=== PATIENT | female | born 1940 | race Caucasian/White ===

== ENCOUNTER 2018-09-30 19:17 | Emergency (ER) | payer MEDICARE ==
[2018-09-30 20:00] LABS: APPEARANCE,URINE Clear (CLEAR); BILIRUBIN,URINE Negative (NEGATIVE); COLOR,URINE Yellow (YELLOW); GLUCOSE, URINE (UA) Negative (NEGATIVE); KETONES,URINE Negative (NEGATIVE); LEUKOCYTE ESTERASE ,URINE Moderate (NEGATIVE); NITRATE,URINE Negative (NEGATIVE); OCCULT BLOOD,URINE Negative (NEGATIVE); PROTEIN,URINE Negative (NEGATIVE)
[2018-09-30 20:01] LABS: BASOPHILS % (AUTO) 0.8 % (0.0-5.0); EOSINOPHILS % (AUTO) 2.5 % (0.0-8.0); HEMATOCRIT 42.4 % (36-48); LYMPHOCYTES % (AUTO) 16.2 % (21.0-51.0); MEAN CORPUSCULAR HEMOGLOBIN 30.8 pg (27.0-33.0); MEAN CORPUSCULAR HGB CONC 34.1 g/dL (32.0-36.0); MEAN CORPUSCULAR VOLUME 90.2 fL (79-99); NEUTROPHILS % (AUTO) 69.5 % (40.0-77.0); PLATELET COUNT (AUTO) 234 K/uL (130-400); RED BLOOD CELL COUNT(AUTO) 4.71 MIL/uL (4.00-5.50); RED CELL DISTRIBUTION WIDTH 13.6 % (11.0-15.5); WHITE BLOOD COUNT (AUTO) 8.8 K/uL (4.8-10.8)
[2018-09-30 20:07] LABS: AMPHET/METH SCREEN,URINE NEGATIVE (NEGATIVE); BACTERIA,URINE Few /HPF (None Seen); BARBITURATE SCREEN, URINE NEGATIVE (NEGATIVE); BENZODIAZEPINES SCREEN,URINE NEGATIVE (NEGATIVE); CANNABINOID SCREEN,URINE NEGATIVE (NEGATIVE); COCAINE SCREEN,URINE NEGATIVE (NEGATIVE); OPIATE SCREEN,URINE NEGATIVE (NEGATIVE); PHENCYCLIDINE SCREEN,URINE NEGATIVE (NEGATIVE); RBC,URINE 0-1 /HPF (0-1)
[2018-09-30 20:08] LABS: SQUAMOUS EPITHELIAL CELL,UR 0-2 /HPF (0-2)
[2018-09-30 20:14] LABS: CREATININE 1.1 mg/dL (0.5-1.5); POTASSIUM 3.4 mmol/L (3.5-5.1)
[2018-09-30 20:17] LABS: INR 0.97 (0.85-1.15); PARTIAL THROMBOPLASTIN TIME 28.9 SEC (26.3-35.5); PROTHROMBIN TIME 10.2 SEC (9.6-11.6)
[2018-09-30 20:19] LABS: ALBUMIN 3.7 g/dL (3.5-5.0); BILIRUBIN,TOTAL 0.5 mg/dL (0.2-1.0); TOTAL PROTEIN, SERUM 7.6 g/dL (6.0-8.3)
[2018-09-30 20:28] LABS: B-TYPE NATRIURETIC PEPTIDE 171 pg/mL (0-100)
[2018-09-30] MEDS ORDERED: SODIUM CHLORIDE 0.9% 1000ML 1,000 ML IV ONE (21:29)
[2018-09-30] MEDS ORDERED: CEFTRIAXONE SODIUM 1 GM ONE (21:29)
== END 2018-09-30 23:00 | disposition home or self-care (01) ==
LOC: EDH 19:17
DX: I95.9 Hypotension, unspecified (principal); N39.0 Urinary tract infection, site not specified; R55 Syncope and collapse; I10 Essential (primary) hypertension; I48.91 Unspecified atrial fibrillation; G25.81 Restless legs syndrome; E78.5 Hyperlipidemia, unspecified; E07.9 Disorder of thyroid, unspecified; Z90.710 Acquired absence of both cervix and uterus; Z98.890 Other specified postprocedural states
CPT/HCPCS: 36415; 80053; 80305; 81001; 82550; 83880; 84484; 85025; 85610; 85730; 87088; 93005; 96361; 96374; 99285; J0696; J7030

== ENCOUNTER → 2019-06-13 | Outpatient (CLI) | payer MEDICARE | END | disposition home or self-care (01) | LOC: SHCH 09:52 | PROVIDERS: ATTEND Internal Medicine Cardiovascular Disease | DX: I11.9 Hypertensive heart disease without heart failure (principal); I08.1 Rheumatic disorders of both mitral and tricuspid valves; I27.20 Pulmonary hypertension, unspecified | CPT/HCPCS: 93306 ==

== ENCOUNTER 2019-07-18 07:29 | Observation (INO) | payer MEDICARE ==
[2019-07-16 12:20] VITALS: BP 119/57
[2019-07-16 12:23] LABS: BASOPHILS % (AUTO) 0.8 % (0.0-5.0); EOSINOPHILS % (AUTO) 2.6 % (0.0-8.0); HEMATOCRIT 40.6 % (36-48); LYMPHOCYTES % (AUTO) 12.6 % (21.0-51.0); MEAN CORPUSCULAR HGB CONC 33.5 g/dL (32.0-36.0); MEAN CORPUSCULAR VOLUME 92.4 fL (79-99); MONOCYTES % (AUTO) 8.6 % (3.0-13.0); NEUTROPHILS % (AUTO) 75.4 % (40.0-77.0); PLATELET COUNT (AUTO) 223 K/uL (130-400); RED BLOOD CELL COUNT(AUTO) 4.39 MIL/uL (4.00-5.50); RED CELL DISTRIBUTION WIDTH 13.4 % (11.0-15.5); WHITE BLOOD COUNT (AUTO) 8.2 K/uL (4.8-10.8)
[2019-07-16 12:34] LABS: CREATININE 1.1 mg/dL (0.5-1.5); POTASSIUM 3.8 mmol/L (3.5-5.1)
[2019-07-16 12:36] LABS: INR 0.97 (0.85-1.15); PARTIAL THROMBOPLASTIN TIME 25.9 SEC (26.3-35.5); PROTHROMBIN TIME 10.2 SEC (9.6-11.6)
--- NOTE | 2019-07-16 13:18 | NUR ---
NOTIFIED GIULIANA PRYOR ABOUT PT HAVING ONE SUPERFICIAL WOUND TO BILATERAL EXT AND TAKING ANTIBIOTICS, MINIMAL DRAINAGE, COVERED WITH BANDAIDS, PT HAS BEEN FEBRILE. PER GIULIANA HAVE PT COME IN EARLY TO BE EVALUATED BY DOCTOR RODRIGUEZ.
[~2019-07-18] VITALS: Ht 161.3 cm; Wt 67.8 kg
[2019-07-18] VITALS (11 sets, daily range): BP systolic 97–116; BP diastolic 51–67
[~2019-07-18 07:29] MED LIST: APIX5TAB PO; CEPH500C2 PO; FIBER CON PO; FURO40TA5 PO; GABA-531 PO; GLIM1TAB2 PO; LEVO112T7 PO; MELATONIN PO; MODA100T31 PO; OMEP40CA37 PO; POTA-79 PO; PRAMIPEXOLE PO; SIMV20TA6 PO; VITAMIN E PO; [UNRECOGNIZED DRUG - CODE] PO
[2019-07-18] MEDS ORDERED: SODIUM CHLORIDE 0.9% 1000ML 1,000 ML IV SCH (08:00)
--- NOTE | 2019-07-18 09:36 | NUR ---
DR. MICHAEL RODRIGUEZ HERE TO ASSESS LOWER SEEPING WOUND. PT ON CEPHALEXIN. DR. RODRIGUEZ STATES TO PROCEED WITH PROCEDURE. PT AWARE.
[2019-07-18] MEDS ORDERED: LIDOCAINE HCL 1% MDV 50ML VIAL ONE (10:41)
[2019-07-18] MEDS ORDERED: MIDAZOLAM HCL 1 MG/ML 2ML VIAL ONE ×3 (10:41→11:14)
[2019-07-18] MEDS ORDERED: BUPIVACAINE/PF 0.25% 50ML VIAL IJ ONE (10:41)
[2019-07-18] MEDS ORDERED: CEFAZOLIN SODIUM 1 GM VIAL ONE (10:43)
[2019-07-18] MEDS ORDERED: MEPERIDINE-PF 25 MG/ML SYG ONE (10:44)
--- NOTE | 2019-07-18 10:45 | NUR ---
procedure PT TAKEN TO PROCEDURE VIA [employer] USER EXPERIENCE STRATEGIST BY YOSI CORTEZ. PT DOING WELL.
[2019-07-18] MEDS ORDERED: IODIXANOL 320 MG/ML 100 ML VIAL ONE (10:53)
[2019-07-18] MEDS ORDERED: MEPERIDINE-PF 50 MG/ML SYG ONE (11:14)
[2019-07-18] MEDS ORDERED: OCTYL 2-CYANOACRYLATE 1 EACH TP ONE (12:40)
[2019-07-18] MEDS ORDERED: DIGOXIN 250 MCG/ML 2ML AMP ONE (12:47)
[2019-07-18] MEDS ORDERED: DIGOXIN 250 MCG/ML 2ML AMP IV SCH ×2 (13:15→18:00)
[2019-07-18] MEDS ORDERED: ONDANSETRON HCL 4 MG/2 ML VIAL IV PRN (13:15)
[2019-07-18] MEDS ORDERED: DEXTROSE 50%-WATER 50 ML DISP.SYRIN IV PRN (13:15)
[2019-07-18] MEDS ORDERED: ACETAMINOPHEN-CODEINE 300/30MG TAB PO PRN ×2 (13:15)
[2019-07-18] MEDS ORDERED: GLUCAGON 1MG KIT 1 MG ML IM PRN (13:15)
--- NOTE | 2019-07-18 13:20 | NUR ---
PROCEDURE RECEIVED PT FROM [facility]. PT AAOX3. LEFT ARM IN A SLING. PRESSURE DRSG TO LEFT UPPER ARM DRY AND INTACT. SOFT TO TOUCH. NO BLEEDING, OOZING NOTED TO SITE. DENIES ANY PAIN. ICE PACK APPLIED TO SITE.
--- NOTE | 2019-07-18 13:35 | NUR ---
SITE CHECK PRESSURE DRSG IN PLACE TO LEFT UPPER CHEST. SOFT TO TOUCH. ICE PACK IN PLACE. KATHIE BLEEDING, OOZING NOTED TO SITE. SLING IN PLACE
--- NOTE | 2019-07-18 13:50 | NUR ---
SITE CHECK PRESSURE DRSG IN PLACE TO LEFT UPPER CHEST. SOFT TO TOUCH. ICE PACK IN PLACE. KATHIE BLEEDING, OOZING NOTED TO SITE. SLING IN PLACE
--- NOTE | 2019-07-18 14:05 | NUR ---
SITE CHECK PRESSURE DRSG IN PLACE TO LEFT UPPER CHEST. SOFT TO TOUCH. ICE PACK IN PLACE. KATHIE BLEEDING, OOZING NOTED TO SITE. SLING IN PLACE
--- NOTE | 2019-07-18 14:20 | NUR ---
SITE CHECK PRESSURE DRSG IN PLACE TO LEFT UPPER CHEST. SOFT TO TOUCH. ICE PACK IN PLACE. KATHIE BLEEDING, OOZING NOTED TO SITE. SLING IN PLACE
--- NOTE | 2019-07-18 14:24 | NUR ---
CONSULT DR. ORDONEZ ASSOCIATE INFORMED OF PTS ADMISSION. ROOM NUMBER GIVEN.
--- NOTE | 2019-07-18 14:50 | NUR ---
SITE CHECK PRESSURE DRSG IN PLACE TO LEFT UPPER CHEST. SOFT TO TOUCH. ICE PACK IN PLACE. KATHIE BLEEDING, OOZING NOTED TO SITE. SLING IN PLACE
--- NOTE | 2019-07-18 15:00 | NUR ---
REPORT REPORT GIVEN TO YOSI PEREZ. TRANSFERRED JAI BED TO ROOM 225. LEFT ARM IN SLING. PRESSURE DRSG IN PLACE TO LEFT UPPER CHEST. SOFT TO TOUCH. ICE PACK IN PLACE. KATHIE BLEEDING, OOZING NOTED TO SITE. PT DENIES ANY PAIN.
[2019-07-18] MEDS: INSULIN HUMULIN R 100 UNIT/ML 3ML SQ SCH ×2 (16:30→21:00)
[2019-07-18] MEDS: FUROSEMIDE 40 MG TABLET PO SCH (20:42)
[2019-07-18] MEDS: CEFAZOLIN SODIUM 1 GM VIAL IVP SCH (20:42)
[2019-07-18] MEDS: PRAMIPEXOLE DI-HCL 0.25 MG TABLET PO SCH (20:43)
[2019-07-18] MEDS ORDERED: MELATONIN 2 MG PO SCH (21:00)
[2019-07-18] MEDS ORDERED: SIMVASTATIN 20 MG TABLET PO SCH (21:00)
[2019-07-18] MEDS ORDERED: GABAPENTIN 300 MG CAPSULE PO SCH (21:00)
[2019-07-18] MEDS ORDERED: PSYLLIUM SEED 1 EACH PACKET PO SCH (21:00)
--- NOTE | 2019-07-18 21:10 | NUR ---
PT STATED HAVING ANXIETY AT THIS TIME. SHE IS ON NASAL CANNULA, MEDICATIONS GIVEN AT THIS TIME. TAKING MELATONIN HOME MEDICATIONS. SHE STATES THIS MEDICATIONS HELPS DECREASE HER ANXIETY AND SHE ALSO CRIES TO COPE WITH IT AT HOME. PT FAMILY AT BEDSIDE. NO DISTRESS NOTED.
[2019-07-19 03:41] VITALS: BP 99/53
[2019-07-19] MEDS: CEFAZOLIN SODIUM 1 GM VIAL IVP SCH (03:43)
[2019-07-19 04:58] LABS: BASOPHILS % (AUTO) 0.6 % (0.0-5.0); EOSINOPHILS % (AUTO) 2.8 % (0.0-8.0); HEMATOCRIT 38.5 % (36-48); LYMPHOCYTES % (AUTO) 12.6 % (21.0-51.0); MEAN CORPUSCULAR HGB CONC 34.2 g/dL (32.0-36.0); MEAN CORPUSCULAR VOLUME 90.6 fL (79-99); MONOCYTES % (AUTO) 10.2 % (3.0-13.0); NEUTROPHILS % (AUTO) 73.8 % (40.0-77.0); PLATELET COUNT (AUTO) 202 K/uL (130-400); RED BLOOD CELL COUNT(AUTO) 4.25 MIL/uL (4.00-5.50); RED CELL DISTRIBUTION WIDTH 13.1 % (11.0-15.5)
[2019-07-19 05:01] LABS: HEMOGLOBIN A1C 7.3 % (4.0-6.0)
[2019-07-19 05:25] LABS: ALBUMIN 2.9 g/dL (3.5-5.0); BILIRUBIN,TOTAL 0.4 mg/dL (0.2-1.0); CREATININE 1.2 mg/dL (0.5-1.5); POTASSIUM 3.9 mmol/L (3.5-5.1); TOTAL PROTEIN, SERUM 6.5 g/dL (6.0-8.3)
[2019-07-19] MEDS: INSULIN HUMULIN R 100 UNIT/ML 3ML SQ SCH ×2 (06:03→11:30)
[2019-07-19] MEDS ORDERED: POTASSIUM CHLORIDE 20 MEQ ERTAB PO SCH (09:00)
[2019-07-19] MEDS ORDERED: GLIMEPIRIDE 2 MG TABLET PO SCH (09:00)
[2019-07-19] MEDS ORDERED: LEVOTHYROXINE 112 MCG TABLET PO SCH (09:00)
[2019-07-19] MEDS ORDERED: DIGOXIN 125 MCG TABLET PO SCH (09:00)
[2019-07-19] MEDS ORDERED: PANTOPRAZOLE SODIUM 40 MG TABLET.DR PO SCH (09:00)
[2019-07-19] MEDS ORDERED: VITAMIN E 400 UNIT CAPSULE PO SCH (09:00)
[2019-07-19] MEDS ORDERED: MODAFINIL 100 MG PO SCH (09:00)
[2019-07-19] MEDS ORDERED: MULTIVITAMIN WITH MINERALS TABLET PO SCH (09:00)
[2019-07-19] MEDS: PRAMIPEXOLE DI-HCL 0.25 MG TABLET PO SCH (09:12)
[2019-07-19] MEDS: FUROSEMIDE 40 MG TABLET PO SCH (09:14)
[2019-07-19] MEDS ORDERED: DOXY100T2 PO (14:54)
[2019-07-19] MEDS ORDERED: DIGO125T87 PO (14:54)
== END 2019-07-19 15:18 | disposition home or self-care (01) ==
LOC: DAH 07:29 → DAHIP 07:30 → 2DH 15:20
PROVIDERS: ADMIT Internal Medicine; ATTEND Internal Medicine
DX: I44.7 Left bundle-branch block, unspecified (principal); E11.9 Type 2 diabetes mellitus without complications; I11.0 Hypertensive heart disease with heart failure; I50.22 Chronic systolic (congestive) heart failure; D68.69 Other thrombophilia; G47.419 Narcolepsy without cataplexy; I25.5 Ischemic cardiomyopathy; I48.91 Unspecified atrial fibrillation; I25.10 Atherosclerotic heart disease of native coronary artery without angina pectoris; Z86.73 Personal history of transient ischemic attack (TIA), and cerebral infarction without residual deficits; Z86.711 Personal history of pulmonary embolism; Z90.710 Acquired absence of both cervix and uterus; Z79.899 Other long term (current) drug therapy
CPT/HCPCS: 33225; 33249; 36415 ×2; 71046; 80048; 80053; 82948 ×6; 83036; 85025 ×2; 85610; 85730; 93005 ×2; 96374; 96375; 96376; A4215; A4216; A4221; A4222; A4223 ×3; A4606; C1769 ×3; C1882; C1895 ×2; C1900; G0378 ×26; J0690 ×3; J1160 ×2; J2175 ×2; J2250 ×3; J3490 ×2; Q9967; 99156; 99157

== ENCOUNTER → 2021-03-25 | Outpatient (CLI) | payer MEDICARE ==
[~2021-03-25] MED LIST changes: +DIGO125T71 PO; +DOXY100T2 PO; +GLIM1TAB18 PO; -GLIM1TAB2 PO; +OMEP40CA13 PO; -OMEP40CA37 PO; +SIMV-43 PO; -SIMV20TA6 PO
== END | disposition home or self-care (01) ==
LOC: SHCH 15:37
PROVIDERS: ATTEND Internal Medicine Cardiovascular Disease
DX: I08.3 Combined rheumatic disorders of mitral, aortic and tricuspid valves (principal); J44.9 Chronic obstructive pulmonary disease, unspecified; I42.0 Dilated cardiomyopathy; E78.5 Hyperlipidemia, unspecified; E11.9 Type 2 diabetes mellitus without complications; I48.91 Unspecified atrial fibrillation
CPT/HCPCS: 93306; 93356

== ENCOUNTER → 2021-09-02 | Outpatient (CLI) | payer MEDICARE ==
[~2021-09-02] MED LIST changes: +ALEN70TA80 PO; +CEPH500B PO; -CEPH500C2 PO; +CYAN1TAB72 PO; -DIGO125T71 PO; +DOXY100C5 PO; -DOXY100T2 PO; -FURO40TA5 PO; +FURO40TA7 PO; -GABA-531 PO; +GABA600T10 PO; -GLIM1TAB18 PO; -MELATONIN PO; +METH20CP PO; +METO-408 PO; -MODA100T31 PO; -OMEP40CA13 PO; +PRAM0.5T12 PO; -PRAMIPEXOLE PO; -SIMV-43 PO; -VITAMIN E PO
== END | disposition home or self-care (01) ==
LOC: RAH 13:32
PROVIDERS: ATTEND Internal Medicine Critical Care Medicine
DX: J84.112 Idiopathic pulmonary fibrosis (principal); R92.8 Other abnormal and inconclusive findings on diagnostic imaging of breast
CPT/HCPCS: 71250

== ENCOUNTER → 2022-03-19 | Outpatient (CLI) | payer MEDICARE ==
[~2022-03-19] MED LIST changes: +REGADENOSON 0.4 MG/5 ML PF SYG IVP SCH
== END | disposition home or self-care (01) ==
LOC: SHCH 08:32
PROVIDERS: ATTEND Internal Medicine Cardiovascular Disease
DX: R07.9 Chest pain, unspecified (principal); Z95.0 Presence of cardiac pacemaker
CPT/HCPCS: 78452; 93017; 96374; A9500 ×2; J2785

== ENCOUNTER → 2022-04-21 | Outpatient (CLI) | payer MEDICARE ==
[~2022-04-21] MED LIST changes: -REGADENOSON 0.4 MG/5 ML PF SYG IVP SCH
== END | disposition home or self-care (01) ==
LOC: OIH 10:08
PROVIDERS: ATTEND Internal Medicine Cardiovascular Disease
DX: I73.9 Peripheral vascular disease, unspecified (principal); I87.2 Venous insufficiency (chronic) (peripheral)
CPT/HCPCS: 93925; 93970

== ENCOUNTER → 2022-06-09 | Outpatient (CLI) | payer MEDICARE ==
[2022-06-09 12:49] LABS: BASOPHILS % (AUTO) 0.5 % (0.0-5.0); EOSINOPHILS % (AUTO) 3.9 % (0.0-8.0); HEMATOCRIT 41.2 % (36-48); LYMPHOCYTES % (AUTO) 17.6 % (21.0-51.0); MEAN CORPUSCULAR HEMOGLOBIN 30.5 pg (27.0-33.0); MEAN CORPUSCULAR HGB CONC 32.5 g/dL (32.0-36.0); MEAN CORPUSCULAR VOLUME 93.6 fL (79-99); MONOCYTES % (AUTO) 11.2 % (3.0-13.0); NEUTROPHILS % (AUTO) 66.5 % (40.0-77.0); PLATELET COUNT (AUTO) 266 K/uL (130-400); RED CELL DISTRIBUTION WIDTH 13.1 % (11.0-15.5); WHITE BLOOD COUNT (AUTO) 7.6 K/uL (4.8-10.8)
[2022-06-09 12:55] LABS: CREATININE 1.2 mg/dL (0.5-1.5); POTASSIUM 4.2 mmol/L (3.5-5.1)
[2022-06-09 13:09] LABS: INR 0.94 (0.85-1.15); PROTHROMBIN TIME 10.3 SEC (9.6-11.6)
[2022-06-09 13:10] LABS: PARTIAL THROMBOPLASTIN TIME 27.6 SEC (26.3-35.5)
== END | disposition home or self-care (01) ==
LOC: LAB 08:25
PROVIDERS: ATTEND Internal Medicine Cardiovascular Disease
DX: I87.2 Venous insufficiency (chronic) (peripheral) (principal); I73.9 Peripheral vascular disease, unspecified; I87.1 Compression of vein; I42.8 Other cardiomyopathies; I48.21 Permanent atrial fibrillation; Z79.01 Long term (current) use of anticoagulants; Z95.810 Presence of automatic (implantable) cardiac defibrillator
CPT/HCPCS: 36415; 80048; 85025; 85610; 85730

== ENCOUNTER 2022-08-18 08:58 | Emergency (ER) | payer MEDICARE ==
[~2022-08-18] VITALS: Ht 162.6 cm; Wt 57.2 kg
[~2022-08-18 08:58] MED LIST changes: +BUDE0.5A3 IH; +CALC625T PO; -CEPH500B PO; +CLOT15CR5 TP; +EMPA25TA PO; -FIBER CON PO; +FLUT1BLS PO; +FURO40TA5 PO; -FURO40TA7 PO; +IPRA3AMP24 IH; +LEVA15HF3 IH; +LEVO112C4 PO; -LEVO112T7 PO; -METH20CP PO; +METH27TA11 PO; -METO-408 PO; +MIDO5TAB4 PO; +MULT-1192 PO; +OMEP20TA20 PO; +PRED20TA3 PO; +SIMV-43 PO; +TIZA4CAP8 PO; -[UNRECOGNIZED DRUG - CODE] PO
[2022-08-18] MEDS ORDERED: LIDOCAINE HCL 1% 20 ML VIAL INJ SCH (09:17)
[2022-08-18] MEDS ORDERED: TETANUS/DIPHTHERIA TOXOID [ADULT] 0.5 ML VIAL IM SCH (09:30)
[2022-08-18] MEDS ORDERED: BACITRACIN 1 EACH PACKET TP ONE (09:51)
[2022-08-18 10:19] VITALS: BP 165/94
== END 2022-08-18 10:30 | disposition home or self-care (01) ==
LOC: EDH 08:58
DX: S71.111A Laceration without foreign body, right thigh, initial encounter (principal); I48.91 Unspecified atrial fibrillation; E11.9 Type 2 diabetes mellitus without complications; E78.00 Pure hypercholesterolemia, unspecified; E03.9 Hypothyroidism, unspecified; Z98.890 Other specified postprocedural states; Z79.899 Other long term (current) drug therapy; Z79.01 Long term (current) use of anticoagulants; W55.03XA Scratched by cat, initial encounter; Y93.89 Activity, other specified; Y92.89 Other specified places as the place of occurrence of the external cause; Y99.8 Other external cause status
CPT/HCPCS: 12001

== ENCOUNTER → 2022-08-31 | Outpatient (CLI) | payer MEDICARE ==
[2022-08-31 12:32] LABS: BASOPHILS % (AUTO) 0.7 % (0.0-5.0); EOSINOPHILS % (AUTO) 3.6 % (0.0-8.0); HEMATOCRIT 40.2 % (36-48); LYMPHOCYTES % (AUTO) 21.7 % (21.0-51.0); MEAN CORPUSCULAR HEMOGLOBIN 29.8 pg (27.0-33.0); MEAN CORPUSCULAR HGB CONC 32.3 g/dL (32.0-36.0); MEAN CORPUSCULAR VOLUME 92.2 fL (79-99); MONOCYTES % (AUTO) 10.5 % (3.0-13.0); NEUTROPHILS % (AUTO) 63.3 % (40.0-77.0); PLATELET COUNT (AUTO) 304 K/uL (130-400); RED BLOOD CELL COUNT(AUTO) 4.36 MIL/uL (4.00-5.50); RED CELL DISTRIBUTION WIDTH 14.1 % (11.0-15.5); WHITE BLOOD COUNT (AUTO) 5.8 K/uL (4.8-10.8)
[2022-08-31 12:44] LABS: CREATININE 1.2 mg/dL (0.5-1.5)
[2022-08-31 12:50] LABS: INR 0.93 (0.85-1.15); PROTHROMBIN TIME 10.2 SEC (9.6-11.6)
[2022-08-31 12:51] LABS: PARTIAL THROMBOPLASTIN TIME 27.2 SEC (26.3-35.5)
== END | disposition home or self-care (01) ==
LOC: LAB 09:12
PROVIDERS: ATTEND Internal Medicine Cardiovascular Disease
DX: R94.31 Abnormal electrocardiogram [ECG] [EKG] (principal); I48.21 Permanent atrial fibrillation
CPT/HCPCS: 36415; 80048; 85025; 85610; 85730

== ENCOUNTER → 2022-10-06 | Outpatient (CLI) | payer MEDICARE ==
[2022-10-06 12:52] LABS: BASOPHILS % (AUTO) 0.8 % (0.0-5.0); EOSINOPHILS % (AUTO) 2.7 % (0.0-8.0); HEMATOCRIT 43.1 % (36-48); LYMPHOCYTES % (AUTO) 21.1 % (21.0-51.0); MEAN CORPUSCULAR HEMOGLOBIN 30.4 pg (27.0-33.0); MEAN CORPUSCULAR HGB CONC 32.5 g/dL (32.0-36.0); MEAN CORPUSCULAR VOLUME 93.7 fL (79-99); MONOCYTES % (AUTO) 9.8 % (3.0-13.0); NEUTROPHILS % (AUTO) 65.3 % (40.0-77.0); PLATELET COUNT (AUTO) 268 K/uL (130-400); WHITE BLOOD COUNT (AUTO) 7.7 K/uL (4.8-10.8)
[2022-10-06 13:16] LABS: CREATININE 1.3 mg/dL (0.5-1.5); POTASSIUM 4.2 mmol/L (3.5-5.1)
[2022-10-06 13:27] LABS: B-TYPE NATRIURETIC PEPTIDE 128 pg/mL (0-100)
== END | disposition home or self-care (01) ==
LOC: LAB 11:57
PROVIDERS: ATTEND Internal Medicine Cardiovascular Disease
DX: R06.02 Shortness of breath (principal)
CPT/HCPCS: 36415; 80048; 83880; 85025

== ENCOUNTER 2022-11-24 15:52 | Emergency (ER) | payer MEDICARE ==
[~2022-11-24] VITALS: Ht 165.1 cm; Wt 57.6 kg
[2022-11-24 16:35] LABS: BASOPHILS % (AUTO) 0.5 % (0.0-5.0); EOSINOPHILS % (AUTO) 3.8 % (0.0-8.0); HEMATOCRIT 39.9 % (36-48); LYMPHOCYTES % (AUTO) 14.9 % (21.0-51.0); MEAN CORPUSCULAR HEMOGLOBIN 29.8 pg (27.0-33.0); MEAN CORPUSCULAR HGB CONC 32.8 g/dL (32.0-36.0); MEAN CORPUSCULAR VOLUME 90.7 fL (79-99); MONOCYTES % (AUTO) 14.9 % (3.0-13.0); NEUTROPHILS % (AUTO) 65.7 % (40.0-77.0); PLATELET COUNT (AUTO) 237 K/uL (130-400); RED CELL DISTRIBUTION WIDTH 13.1 % (11.0-15.5); WHITE BLOOD COUNT (AUTO) 4.4 K/uL (4.8-10.8)
[2022-11-24 16:45] LABS: CREATININE 1.3 mg/dL (0.5-1.5); POTASSIUM 4.4 mmol/L (3.5-5.1)
[2022-11-24 16:49] LABS: ALBUMIN 3.8 g/dL (3.5-5.0); TOTAL PROTEIN, SERUM 7.4 g/dL (6.0-8.3)
[2022-11-24 17:43] VITALS: BP 116/50
[2022-11-24] MEDS ORDERED: CEPH500B PO (18:08)
[2022-11-24] MEDS ORDERED: ALBU18HF7 IH (18:09)
== END 2022-11-24 19:00 | disposition home or self-care (01) ==
LOC: EDH 15:52
DX: U07.1 COVID-19 (principal); N39.0 Urinary tract infection, site not specified; I11.0 Hypertensive heart disease with heart failure; I50.9 Heart failure, unspecified; E03.9 Hypothyroidism, unspecified; E11.9 Type 2 diabetes mellitus without complications; E78.00 Pure hypercholesterolemia, unspecified; I48.91 Unspecified atrial fibrillation; J44.9 Chronic obstructive pulmonary disease, unspecified; Z79.899 Other long term (current) drug therapy; Z98.890 Other specified postprocedural states
CPT/HCPCS: 99285; 84484; 80053; 83880; 85025; 87880; 87804 ×2; 36415; 87635; 71045; 70450; 93005; C9803

== ENCOUNTER → 2023-04-13 | Outpatient (CLI) | payer MEDICARE ==
[~2023-04-13] MED LIST changes: +ALBU18HF7 IH; +APIX2.5T PO; -APIX5TAB PO; +ASCO100033 PO; +CHOL100040 PO; -CLOT15CR5 TP; -CYAN1TAB72 PO; -DOXY100C5 PO; +ESCI-8 PO; +FURO20TA6 PO; -FURO40TA5 PO; -GABA600T10 PO; +LEVO100T12 PO; -LEVO112C4 PO; -METH27TA11 PO; +POTA-364 PO; -POTA-79 PO; -PRED20TA3 PO; +VITA400T9 PO
== END | disposition home or self-care (01) ==
LOC: SHCH 11:00
PROVIDERS: ATTEND Internal Medicine Cardiovascular Disease
DX: R09.89 Other specified symptoms and signs involving the circulatory and respiratory systems (principal)
CPT/HCPCS: 93880

== ENCOUNTER 2024-10-17 12:28 | Emergency (ER) | payer MEDICARE ==
[~2024-10-17] VITALS: Ht 165.1 cm; Wt 63.5 kg
[~2024-10-17 12:28] MED LIST changes: -BUDE0.5A3 IH; -EMPA25TA PO; -ESCI-8 PO; -MIDO5TAB4 PO; -OMEP20TA20 PO; -POTA-364 PO; -TIZA4CAP8 PO
--- NOTE | 2024-10-17 12:42 | ERN ---
General Chief Complaint: Toe Pain/Injury Stated Complaint: TOE INJURY Time Seen by MD: 12:34 Time Seen by Midlevel: 12:34 Source: patient History of Present Illness Initial Comments 84-year-old female presents to the ED due to right toe injury that occurred four days ago. Patient denies any pain and is able to ambulate on the foot. Reports she noticed bruising and redness to the 1st toe. PMHx CAD, COPD, DM, pacemaker Allergies: Coded Allergies: No Known Allergies (Unverified Allergy, Unknown, 07/16/19) Home Meds Active Scripts Levothyroxine Sodium (Levothyroxine Sodium) 100 Mcg Tablet, 100 MCG PO DAILY for 30 Days, #3 TAB Prov:JANI OSORIO NP 04/02/23 Furosemide (Lasix 20Mg Tab) 20 Mg Tablet, 20 MG PO BID for 30 Days, #60 TAB Prov:JANI OSORIO NP 04/02/23 Apixaban (Eliquis) 2.5 Mg Tablet, 2.5 MG PO BID for 30 Days, #60 TAB Prov:JANI OSORIO NP 04/02/23 Albuterol Sulfate (Ventolin Hfa) 18 Gm Hfa.aer.ad, 18 GM IH BID for 14 Days, #30 INHALER Prov:BAM HARLEY MD 11/24/22 Ipratropium/Albuterol Sulfate (Iprat-Albut 0.5-3(2.5) mg/3 ml) 3 Ml Ampul.neb, 1 UDVIAL IH [id number] for 15 Days, #60 AMP 1 Refill Prov:ILIA ORDONEZ Jr., MD 06/30/22 Reported Medications Ascorbic Acid (Vitamin C) 1,000 Mg Tablet.er, 1000 MG PO DAILY, TAB 04/02/23 Vitamin E Mixed (Vitamin E) 400 Unit Tablet, 400 UNIT PO DAILY, TAB 04/02/23 Cholecalciferol (Vitamin D3) (Vitamin D3) 25 Mcg Capsule, 25 MCG PO BIDAC, CAP 04/02/23 Levalbuterol Tartrate (Levalbuterol Tartrate Hfa) 15 Gm Hfa.aer.ad, 2 PUFF IH [id number] 06/29/22 Fluticasone/Vilanterol (Breo Ellipta 200-25 Mcg INH) 1 Each Blst.w.dev, 1 PUFF PO DAILY 06/29/22 Multivitamin (Multi-Vitamin Daily) 1 Each Tablet, 1 EACH PO DAILY, TAB 06/28/22 Simvastatin (Simvastatin) 20 Mg Tablet, 20 MG PO HS, TAB 06/28/22 Pramipexole Di-HCl (Pramipexole Dihydrochloride) 0.5 Mg Tablet, 0.5 MG PO BID, TAB 06/28/22 Calcium Polycarbophil (Fibercon) 625 Mg Tablet, 650 MG PO HS, TAB 06/28/22 Alendronate Sodium (Alendronate Sodium) 70 Mg Tablet, 70 MG PO QWEEK, TAB 07/07/21 Past Medical History Past Medical History: CAD, COPD, Diabetes-Type II Medical History Other: PLEURAL EFFUSION Past Surgical History: Unknown Surgical History Other: DEFIBRILLATOR AND PACEMAKER, JOHN RODRIGUEZ Social History Social History: Negative, Lives with family ROS Dictation Constitutional: Negative for fever,chills, and weight loss Eyes: Negative for injury, pain,redness, and discharge ENT: Negative for injury,pain or swelling Cardiovascular: Negative for chest pain, palpitations, and edema Respiratory: Negative for shortness of breath, cough, and wheezing, Abdomen/GI: Negative for abdominal pain, nausea, vomiting, diarrhea, and constipation Back: Negative for injury and pain : Negative for painful urination, bleeding or discharge MS/Extremity: Right toe injury, bruising Negative for injury and deformity Skin: Negative for rash, and discoloration Neuro: Negative for headache, weakness, numbness, tingling, and seizure Psych: Negative for suicide ideation, homicidal ideation, and hallucinations Physical Exam Physical Exam Dictation General: awake, alert, no acute distress Head/Face: Normocephalic, atraumatic Eyes: normal conjunctiva Neck: Normal range of motion, supple Cardiovascular: RRR, normal S1/S2, right toe capillary refills greater than 2 seconds Skin: Warm, dry, normal turgor, no rash MS/Extremity: Pulses equal, neurovascular intact, right foot/toes full range of motion, no tenderness, ecchymosis noted to the dorsal aspect of the 1st toe Neuro: COAx4, GCS 15, right foot neurovascularly intact, no neurological deficits, normal gait Psych: Normal behavior, mood, and affect normal Results Laboratory and Microbiology Lab and Micro Result Laboratory Tests Test 10/17/24 13:34 White Blood Count 10.2 K/uL (4.8-10.8) Red Blood Count 4.38 MIL/uL (4.00-5.50) Hemoglobin 13.2 g/dL (12.0-16.0) Hematocrit 39.8 % (36-48) Mean Corpuscular Volume 90.9 fL (79-99) Mean Corpuscular Hemoglobin 30.1 pg (27.0-33.0) Mean Corpuscular Hemoglobin Concent 33.2 g/dL (32.0-36.0) Red Cell Distribution Width 13.0 % (11.0-15.5) Platelet Count 214 K/uL (130-400) Mean Platelet Volume 10.1 fL (7.5-10.5) Immature Granulocyte % (Auto) 0.4 % (0-1) Neutrophils (%) (Auto) 73.9 % (40.0-77.0) Lymphocytes (%) (Auto) 12.5 % (21.0-51.0) L Monocytes (%) (Auto) 9.0 % (3.0-13.0) Eosinophils (%) (Auto) 3.7 % (0.0-8.0) Basophils (%) (Auto) 0.5 % (0.0-5.0) Neutrophils # (Auto) 7.5 K/uL (1.8-7.7) Lymphocytes # (Auto) 1.3 K/uL (1.0-4.8) Monocytes # (Auto) 0.9 K/uL (0.1-1.0) Eosinophils # (Auto) 0.38 K/uL (0.00-0.70) Basophils # (Auto) 0.05 K/uL (0.00-0.20) Absolute Immature Granulocyte (auto 0.04 K/uL (0-1) Nucleated Red Blood Cells 0.0 % (0.0-0.19) Prothrombin Time 10.5 SEC (9.6-11.6) Prothromb Time International Ratio 0.97 (0.85-1.15) Activated Partial Thromboplast Time 26.2 SEC (26.3-35.5) L Sodium Level 137 mmol/L (136-145) Potassium Level 4.0 mmol/L (3.5-5.1) Chloride Level 99 mmol/L (101-111) L Carbon Dioxide Level 33 mmol/L (21-32) H Blood Urea Nitrogen 25 mg/dL (7-18) H Creatinine 1.3 mg/dL (0.5-1.0) H Glomerular Filtration Rate Calc 40 mL/min (>90) Random Glucose 94 mg/dL (70-105) Total Calcium 9.7 mg/dL (8.5-10.1) Labs Reviewed?: Yes EKG/XRAY/US/CT/MRI Ultrasound Comment REASON: Pain, injury ORDERING PHYSICIAN: MAYA CAMPBELL PROCEDURE: FT 3VW RT - FOOT COMP 3+VWS RT FOOT COMP 3+VWS RT HISTORY: Injury COMPARISON: None TECHNIQUE: 3 images of right foot were obtained. FINDINGS: Fracture with mild displacement is seen involving the first proximal phalanx with articular extension to the first metatarsophalangeal joint. No dislocation is seen. Degenerative changes are seen. IMPRESSION: 1. Findings as described above. REASON: R/O DVT, calf tenderness ORDERING PHYSICIAN: MAYA CAMPBELL PROCEDURE: VENOUS UNI - US VENOUS DOPPLER UNILATERAL US VENOUS DOPPLER UNILATERAL HISTORY: Right calf tenderness COMPARISON: None TECHNIQUE: Right lower extremity venous Doppler ultrasound study was performed. FINDINGS: The common femoral, femoral, popliteal, and posterior tibial veins are visualized. Normal right flow with augmentation and compressibilities are demonstrated. Right greater saphenous vein is patent. IMPRESSION: 1. No evidence of deep venous thrombosis is seen. REASON: Erythema, Delayed capillary refill ORDERING PHYSICIAN: MAYA CAMPBELL PROCEDURE: ART U LE - US ARTERIAL UNILA LOW EXT DUPL US ARTERIAL UNILA LOW EXT DUPL HISTORY: Delay capillary refill COMPARISON: None TECHNIQUE: Right lower extremity arterial Doppler ultrasound study was performed. FINDINGS: Normal triphasic arterial waveforms are noted in the common femoral, deep femoral, superficial femoral, popliteal, posterior tibial and dorsalis pedal arteries. On the right, the peak systolic velocity of the common femoral artery is 143 cm/s, the proximal femoral artery is 106 cm/s, the mid femoral artery is 84 cm/s, the distal femoral artery is 112 cm/s, the proximal popliteal artery is 77 cm/s, the distal popliteal artery is 77 cm/s, the anterior tibial artery is 69 cm/s, the posterior tibial artery artery is 43 cm/s,and the dorsalis pedal artery is 176 cm/s. IMPRESSION: 1. Atherosclerotic disease. 2. Otherwise normal triphasic arterial waveforms noted of the lower extremity artery system. PEDRO MDM: Differential diagnosis: Fracture, dislocation, sprain, strain Rationale: 84-year-old female presents to the ED due to right toe injury that occurred four days ago. Patient denies any pain and is able to ambulate on the foot. Reports she noticed bruising and redness to the 1st toe. PMHx CAD, COPD, DM, pacemaker Labs obtained are consistent with patient's chronic kidney disease. X-ray of the right foot indicates fracture with mild displacement of the 1st proximal phalanx with articular extension to the 1st metatarsophalangeal joint, no dislocation seen. Venous ultrasound of the right lower extremity negative. Arterial ultrasound indicates normal triphasic waveforms, arthrosclerotic disease. Patient was placed on a boot and referred to ortho. Advised to follow up with PCP. Return to the ED if any worsening symptoms. Patient verbalized understanding. There are no social concerns with this patient. I independently interpreted the test that were performed, results were reviewed by me and considered findings on radiology if ordered. Medical management and examination interpretation discussions were had by me with other qualified healthcare professionals as indicated for the patient's care. ED Course Orders Procedure Category Date Status Time Foot Comp 3+Vws Rt RAD 10/17/24 Resulted 12:38 Us Venous Doppler US 10/17/24 Resulted Unilateral 12:38 Cbc With Differential LAB 10/17/24 Complete 12:38 Basic Metabolic Panel LAB 10/17/24 Complete 12:38 Pt And Ptt LAB 10/17/24 Complete 12:38 Us Arterial Unila Low US 10/17/24 Resulted Ext Dupl 15:09 Vital Signs Date Time Temp Pulse Resp B/P (MAP) Pulse Ox O2 Delivery O2 Flow Rate FiO2 10/17/24 16:31 98.2 74 16 132/80 95 Room Air* 0 10/17/24 14:46 98.2 70 16 135/67 95 Room Air* 0 21 10/17/24 12:30 98.2 70 16 106/44 95 Room Air* 0 21 10/17/24 12:30 98.2 75 16 106/44 95 Room Air 0 DX & DISP Disposition: Discharge Departure Impression: Primary Impression: Fractured great toe Condition: Stable Additional Instructions: Discharge home. Rest. Follow up with primary care DrLee Ann in 24 hours. Return to the ER for any acute changes or worsening symptoms. If any medications were prescribed take as directed. Okay to continue home medications unless otherwise discussed during your visit in the emergency room today. Patient was also advised to follow-up with primary care physician in 1 to 2 days for continued monitoring. Referrals: KATY CASSIDY MD (PCP) TEODORO RODRIGUEZ MD, DANIEL A MD I performed this substantive portion of this visit. I have reviewed and personally made and approve the management plan that is documented in the note by myself or the BERNARD. I acknowledge full responsibility for the patient's management plan. MAYA CAMPBELL Oct 17, 2024 12:42 BAM HARLEY MD Oct 19, 2024 12:52
[2024-10-17 13:40] LABS: BASOPHILS # (AUTO) 0.05 K/uL (0.00-0.20); BASOPHILS % (AUTO) 0.5 % (0.0-5.0); EOSINOPHILS # (AUTO) 0.38 K/uL (0.00-0.70); EOSINOPHILS % (AUTO) 3.7 % (0.0-8.0); HEMATOCRIT 39.8 % (36-48); IMMATURE GRANULOCYTE ABSOLUTE 0.04 K/uL (0-1); LYMPHOCYTES # (AUTO) 1.3 K/uL (1.0-4.8); LYMPHOCYTES % (AUTO) 12.5 % (21.0-51.0); MEAN CORPUSCULAR HEMOGLOBIN 30.1 pg (27.0-33.0); MEAN CORPUSCULAR HGB CONC 33.2 g/dL (32.0-36.0); MEAN CORPUSCULAR VOLUME 90.9 fL (79-99); MONOCYTES # (AUTO) 0.9 K/uL (0.1-1.0); NEUTROPHILS # (AUTO) 7.5 K/uL (1.8-7.7); NEUTROPHILS % (AUTO) 73.9 % (40.0-77.0); PLATELET COUNT (AUTO) 214 K/uL (130-400); RED BLOOD CELL COUNT(AUTO) 4.38 MIL/uL (4.00-5.50); WHITE BLOOD COUNT (AUTO) 10.2 K/uL (4.8-10.8)
[2024-10-17 13:49] LABS: CREATININE 1.3 mg/dL (0.5-1.0)
[2024-10-17 13:51] LABS: INR 0.97 (0.85-1.15); PROTHROMBIN TIME 10.5 SEC (9.6-11.6)
[2024-10-17 13:52] LABS: PARTIAL THROMBOPLASTIN TIME 26.2 SEC (26.3-35.5)
--- NOTE | 2024-10-17 14:12 | HMCIMG ---
FOOT COMP 3+VWS RT HISTORY: Injury COMPARISON: None TECHNIQUE: 3 images of right foot were obtained. FINDINGS: Fracture with mild displacement is seen involving the first proximal phalanx with articular extension to the first metatarsophalangeal joint. No dislocation is seen. Degenerative changes are seen. IMPRESSION: 1. Findings as described above.
--- NOTE | 2024-10-17 14:22 | HMCIMG ---
US VENOUS DOPPLER UNILATERAL HISTORY: Right calf tenderness COMPARISON: None TECHNIQUE: Right lower extremity venous Doppler ultrasound study was performed. FINDINGS: The common femoral, femoral, popliteal, and posterior tibial veins are visualized. Normal right flow with augmentation and compressibilities are demonstrated. Right greater saphenous vein is patent. IMPRESSION: 1. No evidence of deep venous thrombosis is seen.
--- NOTE | 2024-10-17 16:08 | HMCIMG ---
US ARTERIAL UNILA LOW EXT DUPL HISTORY: Delay capillary refill COMPARISON: None TECHNIQUE: Right lower extremity arterial Doppler ultrasound study was performed. FINDINGS: Normal triphasic arterial waveforms are noted in the common femoral, deep femoral, superficial femoral, popliteal, posterior tibial and dorsalis pedal arteries. On the right, the peak systolic velocity of the common femoral artery is 143 cm/s, the proximal femoral artery is 106 cm/s, the mid femoral artery is 84 cm/s, the distal femoral artery is 112 cm/s, the proximal popliteal artery is 77 cm/s, the distal popliteal artery is 77 cm/s, the anterior tibial artery is 69 cm/s, the posterior tibial artery artery is 43 cm/s,and the dorsalis pedal artery is 176 cm/s. IMPRESSION: 1. Atherosclerotic disease. 2. Otherwise normal triphasic arterial waveforms noted of the lower extremity artery system.
[2024-10-17 16:31] VITALS: BP 132/80; PULSE 74; RESP 16; TEMP 98.2; O2SAT 95
== END 2024-10-17 16:34 | disposition home or self-care (01) ==
LOC: EDH 12:28
DX: S92.411A Displaced fracture of proximal phalanx of right great toe, initial encounter for closed fracture (principal); M79.661 Pain in right lower leg; I25.10 Atherosclerotic heart disease of native coronary artery without angina pectoris; E11.9 Type 2 diabetes mellitus without complications; J44.9 Chronic obstructive pulmonary disease, unspecified; Z79.01 Long term (current) use of anticoagulants; Z79.51 Long term (current) use of inhaled steroids; Z79.890 Hormone replacement therapy; Z95.0 Presence of cardiac pacemaker; X58.XXXA Exposure to other specified factors, initial encounter; Y93.89 Activity, other specified; Y92.89 Other specified places as the place of occurrence of the external cause; Y99.8 Other external cause status
CPT/HCPCS: 36415; 73630; 80048; 85025; 85610; 85730; 93926; 93971; 99284